=== PATIENT | female | born 1950 | race Caucasian/White ===

== ENCOUNTER 2023-05-02 16:17 | Emergency (ER) | payer MEDICARE, BC ==
[~2023-05-02] VITALS: Ht 167.6 cm; Wt 76.7 kg
[2023-05-02 17:03] VITALS: BP 135/81
[2023-05-02] MEDS ORDERED: AMOX500T86 PO (17:53)
[2023-05-02] MEDS ORDERED: ACET-1080 PO (17:53)
[2023-05-02] MEDS ORDERED: TETANUS-DIPTH-ACEL PERTUSSIS 0.5ML SYR Tdap IM ONE (18:00)
== END 2023-05-02 18:15 | disposition home or self-care (01) ==
LOC: ER 16:17
DX: S61.412A Laceration without foreign body of left hand, initial encounter (principal); S61.452A Open bite of left hand, initial encounter; Z79.2 Long term (current) use of antibiotics; Z79.899 Other long term (current) drug therapy; Z88.1 Allergy status to other antibiotic agents; W54.0XXA Bitten by dog, initial encounter; Y93.89 Activity, other specified; Y92.89 Other specified places as the place of occurrence of the external cause; Y99.8 Other external cause status
CPT/HCPCS: 12004; 90471; 90715; 99283; J2001

== ENCOUNTER 2023-05-04 14:40 | Emergency (ER) | payer MEDICARE, BC ==
[~2023-05-04] VITALS: Ht 167.6 cm; Wt 78.4 kg
[~2023-05-04 14:40] MED LIST: ACET-1080 PO; AMOX500T86 PO
[2023-05-04 15:15] VITALS: BP 135/61
[2023-05-04] MEDS ORDERED: CLINDAMYCIN 600MG IV 50 ML IV ONE (18:45)
[2023-05-04] MEDS ORDERED: cefTRIAXone 1GM/50ML D5W 50 ML IV ONE (18:45)
[2023-05-11] MEDS ORDERED: CEPH250C PO (14:00)
[2023-05-11] MEDS ORDERED: MAX35OO TOP (14:00)
== END 2023-05-04 20:47 | disposition home or self-care (01) ==
LOC: ER 14:40
DX: S61.412D Laceration without foreign body of left hand, subsequent encounter (principal); W54.0XXD Bitten by dog, subsequent encounter; Z98.51 Tubal ligation status; Z88.1 Allergy status to other antibiotic agents
CPT/HCPCS: 96365; 96368; 99284; J0696; J3490

== ENCOUNTER 2023-10-02 12:39 | Day surgery (SDC) | payer MEDICARE, BC ==
[2023-09-29 10:51] LABS: Basophils # (auto) 0 10 ^3/uL (0-0.2); Basophils % (auto) 0.4 % (0.0-2.0); Eosinophils # (auto) 0.1 10 ^3/uL (0-0.8); Hematocrit 40.3 % (36.0-46.0); Hemoglobin 13.4 g/dL (12.2-16.2); Lymphocytes # (auto) 2.5 10 ^3/uL (0.4-5.4); Lymphocytes % (auto) 38.8 % (10.0-50.0); Mean Corpuscular Hemoglobin 31.5 pg (28.0-32.0); Mean Corpuscular Hgb Conc. 33.2 g/dL (32.0-36.0); Mean Corpuscular Volume 94.7 fL (80.0-100.0); Monocytes # (auto) 0.6 10 ^3/uL (0-1.3); Monocytes % (auto) 8.7 % (0.0-12.0); Neutrophils # (auto) 3.3 10 ^3/uL (1.6-8.6); Neutrophils % (auto) 50.1 % (37.0-80.0); Nucleated Red Blood Cells % 0.1 %; Red Blood Cells 4.26 10^6/uL (4.0-5.20); Red Cell Distribution Width 13.2 % (11.8-14.3); White Blood Cell 6.6 10^3/uL (4.4-10.8)
[2023-09-29 11:14] LABS: INR 0.99 (0.9-1.15); Partial Thromboplastin Time 24.8 SEC (24.5-34.5); Prothrombin Time 10.4 sec (9.3-11.8)
[2023-09-29 11:40] LABS: Alanine Aminotransferase 16 U/L (7-40); Albumin 4.4 g/dL (3.2-4.8); Alkaline Phosphatase 77 U/L (46-116); Anion Gap 8 (5-15); Aspartate Aminotransferase 19 U/L (13-40); BUN/Creatinine Ratio 16.3 (10.0-20.0); Bilirubin, Total 0.8 mg/dL (0.2-1.0); Blood Urea Nitrogen 17 mg/dL (9-23); Calcium 9.4 mg/dL (8.7-10.4); Carbon Dioxide 26 mmol/L (20-30); Chloride 105 mmol/L (98-107); Glucose 104 mg/dL (74-106); Potassium 4.1 mmol/L (3.5-5.1); Sodium 139 mmol/L (136-145)
[2023-09-29 11:41] LABS: Total Protein 7.9 g/dL (5.7-8.2)
[~2023-10-02] VITALS: Ht 167.6 cm; Wt 77.1 kg
[2023-10-02] MEDS ORDERED: SODIUM CHLORIDE LOCK 10 ML ONE (12:45)
[2023-10-02 13:52] VITALS: PULSE 87; RESP 18; O2SAT 100
[2023-10-02] MEDS: MIDAZOLAM HCL 5 MG/ML-1ML VIAL ONE ×3 (13:56→14:03)
[2023-10-02] MEDS: fentaNYL CITRATE 100 MCG/2 ML VL ONE ×2 (13:56→13:59)
[2023-10-02] MEDS: diphenhdrAMINE HCL 50 MG/1 ML VL ONE ×2 (13:56→13:59)
[2023-10-02 14:18] VITALS: TEMP 98.1
[2023-10-02 14:55] VITALS: BP 131/62; PULSE 80; RESP 22; O2SAT 97
== END 2023-10-02 15:10 | disposition home or self-care (01) ==
LOC: GI 12:39
PROVIDERS: ATTEND Internal Medicine Gastroenterology
DX: R19.4 Change in bowel habit (principal); K57.30 Diverticulosis of large intestine without perforation or abscess without bleeding; K64.8 Other hemorrhoids; M62.89 Other specified disorders of muscle; I49.9 Cardiac arrhythmia, unspecified; G47.30 Sleep apnea, unspecified; Z88.1 Allergy status to other antibiotic agents; Z98.51 Tubal ligation status; Z98.890 Other specified postprocedural states
CPT/HCPCS: 36415; 45378; 80053; 85025; 85610; 85730; J1200; J2250; J3010; J7030; 99152

== ENCOUNTER 2025-07-01 12:45 | Emergency (ER) | payer BC, MEDICARE ==
[~2025-07-01] VITALS: Ht 170.2 cm; Wt 77.2 kg
--- NOTE | 2025-07-01 13:39 | ED.PDOC ---
Back pain HPI HPI Comments 75 y/o F presents with c/c lower back pain. Patient endorses on 6x day history of symptoms following onset after lifting several boxes of varying weight on 06/26/25. Significant history of chronic back pain with episode flare ups in the past. No additional strain, strenuous activities, or injuries reported. Patient was evaluated at ED and given tramadol, yesterday, which she endorses as not alleviating her pain symptom. Patient denies any weakness but does state she is experiencing pain through her right gluteal region into her right lateral thigh. Patient brought the imaging study report showing degenerative disc disease as well as spinal stenosis of the lumbar spine. Chief Complaint: Back Pain Time Seen by MD: 13:20 Primary Care Provider: JOSS Allergies: Coded Allergies: Erythromycin (Verified Allergy, Unknown, 05/02/23) Mode of Arrival: Wheelchair Timing: Hours Duration: Since onset Location of Back pain: (B) Lower back, (B) Lumbar Radiates to: Posterior: (R) Buttocks, (R) Thigh Severity: Severe Prehospital treatment: Other (see HPI) Quality: Cramping, Sharp, Stabbing Onset: Lifing History of: Chronic Back Pain Past Medical History PAST MEDICAL HISTORY: High Lipids Past Medical History (Other): Recent history of back pain concerns Surgical History: Tubal Ligation PR MANAGER History: Denies all PR MANAGER Hx Family History Family History: Unknown Social History Smoker: Non-Smoker Alcohol: Denies ETOH Use Drugs: Denies Drug Use Lives In: Home Constitutional: denies: chills, diaphoresis, fatigue, fever, malaise, sweats, weakness, others EENTM: denies: blurred vision, double vision, ear bleeding, ear discharge, ear drainage, ear pain, ear ringing, eye pain, eye redness, hearing loss, mouth pain, mouth swelling, nasal discharge, nose bleeding, nose congestion, nose pain, photophobia, tearing, throat pain, throat swelling, voice changes, others Respiratory: denies: cough, hemoptysis, orthopnea, SOB at rest, shortness of breath, SOB with excertion, stridor, wheezing, others Cardiovascular: denies: chest pain, dizzy spells, diaphoresis, Dyspnea on exertion, edema, irregular heart beat, left arm pain, lightheadedness, palpitations, PND, syncope, others Gastrointestinal: denies: abdomen distended, abdominal pain, blood streaked bowels, constipated, diarrhea, dysphagia, difficulty swallowing, hematemesis, melena, nausea, poor appetite, poor fluid intake, rectal bleeding, rectal pain, vomiting, others Genitourinary: denies: abnormal vagina bleeding, burning, dyspareunia, dysuria, flank pain, frequency, hematuria, incontinence, pain, , vagina discharge , urgency, others Neurological: denies: dizziness, fainting, headache, left sided numbness, left sided weakness, numbness, paresthesia, pre-existing deficit, right sided numbness, right sided weakness, seizure, speech problems, tingling, tremors, weakness, others Musculoskeletal: reports: back pain (Radiating down the right gluteal region into the lateral right thigh); denies: gout, joint pain, joint swelling, muscle pain, muscle stiffness, neck pain, others Integumetry: denies: bruises, change in color, change in hair/nails, dryness, laceration, lesions, lumps, rash, wounds, others Allergic/Immunocompromised: denies: Difficulty Healing, Frequent Infections, Hives, Itching, others Hematologic/Lymphatic: denies: anemia, blood clots, easy bleeding, easy bru ising, swollen glands, others Endocrine: denies: excessive hunger, excessive sweating, excessive thirst, e xcessive urination, flushing, intolerance to cold, intolerance to heat, unexplained weight gain, unexplained weight loss, others Psychiatric: denies: anxiety, bipolar disorder, depression, hopeless, panic disorder, schizophrenia, sleepless, suicidal, others All Other Systems: Reviewed and Negative (As per HPI) Physical Exam General Appearance: Moderate Distress (Moderate to significant distress due to back pain concerns.), Normal HEENT: Normal ENT Inspection, Pharynx Normal, TMs Normal Neck: Full Range of Motion, Non-Tender, Normal, Normal Inspection Respiratory: Chest Non-Tender, Lungs Clear, No Accessory Muscle Use, No Respiratory Distress, Normal Breath Sounds Cardiovascular: No Edema, No JVD, No Murmur, No Gallop, Normal Peripheral Pulses, Regular Rate/Rhythm Breast Exam: Deferred Gastrointestinal: Non Tender, No Pulsatile Mass, Normal Bowel Sounds, Soft Genitalia: Deferred Pelvic: Deferred Rectal: Deferred Extremities: No calf tenderness, Normal capillary refill, No pedal edema Musculoskeletal : Location: Bilateral Extremity Location: Back (Diffuse bilateral lumbar tenderness to palpation throughout with moderate to significant hypertonicity appreciated. Patient complains of pain radiating through the right gluteal region into the lateral right thigh. No signs of trauma. No edema or ecchymosis. Patient denies any saddle paresthesia. Bilateral distal neurovascularly intact.) Apperance: Normal Neurologic: Alert Cerebellar Function: NOT DONE Reflexes: NOT DONE Skin: Dry, Normal Color, Warm Lymphatic: No Adenopathy Was a procedure done? Was a procedure done?: No Back Pain Differential Dx Differential Diagnosis: DJD, Musculoskeletal Pain, Strain, Other (chronic back pain, degenerative disc disease, among others) X-Ray, Labs, Meds, VS Vital Signs Date Time Temp Pulse Resp B/P (MAP) Pulse Ox O2 Delivery O2 Flow Rate FiO2 07/01/25 13:43 99.0 82 16 127/64 (85) 95 99.0 07/01/25 13:43 82 16 95 Room Air 07/01/25 13:42 82 16 127/64 07/01/25 12:56 98.7 82 18 127/71 96 98.7 Current Medications Medications (Trade) Dose Ordered Sig/Armando Route Start Time Stop Time Status Last Admin Hydromorphone HCl (Dilaudid Injection) 0.5 mg ONCE ONCE IM 07/01/25 13:30 07/01/25 13:31 DC 07/01/25 13:42 X-Ray, Labs, Meds, VS Comment At time discussing with the condition with the patient. Advised that she will need to follow up with the primary care provider as she has spinal stenosis and degenerative disc disease of the lumbar spine. I will send the patient home with some [place] and she was provided with a 0.5 Dilaudid prior to discharge. Advised patient she will have to follow up with the primary care provider to either have him manage her medication needs or establish a painter maintenance. Time of 1ST Reevaluation: 13:55 Reevaluation 1ST: Improved Consultation: PCP, Other (Spinal specialist) Patient Education/Counseling: Diagnosis, Treatment, Need For Follow Up Family Education/Counseling: Diagnosis, Treatment, No Family Present SEPSIS Sepsis Screen Date sepsis recognized/suspect: Jul 01, 2025 Time Sepsis recognized/suspect: 1259 Recent Procedure: No On Antibiotic Therapy: No Respiratory Rate >20: No Heart Rate >90: No Temp<36 C (96.8 F) or >38.3 C: No SBP <90 or MAP <65 mmHG: No New Acute Mental Status Change: No Is the patient on CPAP, BIPAP,: No Vital Signs Date Time Temp Pulse Resp B/P (MAP) Pulse Ox O2 Delivery O2 Flow Rate FiO2 07/01/25 13:43 99.0 82 16 127/64 (85) 95 99.0 07/01/25 13:43 82 16 95 Room Air 07/01/25 13:42 82 16 127/64 07/01/25 12:56 98.7 82 18 127/71 96 98.7 Medications Medications Dose Ordered Sig/Armando Route Start Time Stop Time Status Last Admin Dose Admin Hydromorphone HCl 0.5 mg ONCE ONCE IM 07/01/25 13:30 07/01/25 13:31 DC 07/01/25 13:42 Departure 1 Departure Time of Disposition: 13:56 Impression: Primary Impression: Chronic low back pain Additional Impressions: Spinal stenosis Degenerative joint disease (DJD) of lumbar spine Disposition: 01 HOME / SELF CARE / HOMELESS Condition: Stable Additional Instructions: Advised patient utilize pain medication additionally, patient needs to follow up with the primary care provider for long-term management as well as spinal specialist referral. e-Prescriptions Hydrocodone-Acetaminophen (Hydrocodone Bitartrate/AC 10-325 mg) 1 Tab Tab 1 TAB PO Q8HP PRN, #15 TAB Prov: JAMILA KENT PAC 07/01/25 Discharged With: Self, Spouse Critical Care Note Critical Care Time?: No Stability Stability form required: No Heart Score Heart Score: Heart Score Response (Comments) Value History N/A 0 EKG N/A 0 Age N/A 0 Risk Factors N/A 0 Troponin N/A 0 Total 0 I personally scribed for JAMILA KENT PAC ([email or web address]) on 07/01/25 at 13:39. Electronically submitted by Dakotah Anguiano ([email or web address]). JAMILA KENT PAC Jul 01, 2025 13:39
[2025-07-01] MEDS: HYDROmorphone HCL 2 MG/ML VL/or syr IM ONE (13:42)
[2025-07-01 13:43] VITALS: TEMP 99; O2SAT 95
[2025-07-01] MEDS ORDERED: HYDR-4798 PO (13:58)
[2025-07-01 14:18] VITALS: BP 125/64; PULSE 82; RESP 16
== END 2025-07-01 14:20 | disposition home or self-care (01) ==
LOC: ER 12:50
DX: G89.29 Other chronic pain (principal); M51.360 Other intervertebral disc degeneration, lumbar region with discogenic back pain only; M48.061 Spinal stenosis, lumbar region without neurogenic claudication; E78.5 Hyperlipidemia, unspecified; Z98.51 Tubal ligation status; Z88.1 Allergy status to other antibiotic agents; Z91.09 Other allergy status, other than to drugs and biological substances
CPT/HCPCS: 96372; 99283; J1171

== ENCOUNTER 2025-08-06 10:52 | Emergency (ER) | payer MEDICARE ==
[~2025-08-06] VITALS: Ht 167.6 cm; Wt 75.0 kg
[~2025-08-06 10:52] MED LIST changes: -ACET-1080 PO; -AMOX500T86 PO; +HYDR-4798 PO
[2025-08-06 12:29] LABS: Urine Protein, UAD 1+ (Negative); Urine WBC Clumps PRESENT /hpf (None Seen)
[2025-08-06] MEDS: cefTRIAXone SOD 1,000 MG VL IM ONE (12:56)
[2025-08-06 12:58] VITALS: BP 122/68; PULSE 68; RESP 18; TEMP 98; O2SAT 97
[2025-08-06] MEDS ORDERED: cefTRIAXone SOD 1,000 MG VL ONE (12:59)
[2025-08-06] MEDS: HYDROcodone-ACET 5/325MG TAB PO ONE (13:07)
[2025-08-06] MEDS ORDERED: HYDROcodone-ACET 5/325MG TAB ONE (13:09)
--- NOTE | 2025-08-06 13:29 | ED.PDOC ---
General HPI Comments 75-year-old female presents with a chief complaint of UTI symptoms. No red flags. Also has a history of chronic back pain in his requesting refill on her [place] medication. Reports that she fell to follow up with the PCP Chief Complaint: Urinary Time Seen by MD: 11:13 Primary Care Provider: JOSS Reviewed notes: Nurses Notes, Medications, Allergies Allergies: Coded Allergies: Erythromycin (Verified Allergy, Unknown, 05/02/23) Home Meds Active Scripts Hydrocodone-Acetaminophen (Hydrocodone Bitartrate/AC 10-325 mg) 1 Tab Tab, 1 TAB PO Q8HP PRN, #15 TAB Prov:JAMILA KENT PAC 07/01/25 Information Source: Patient Mode of Arrival: Wheelchair Past Medical History PAST MEDICAL HISTORY: High Lipids Surgical History: Tubal Ligation COMPLIANCE ADVISOR History: Denies all COMPLIANCE ADVISOR Hx Family History Family History: Reviewed,noncontributory to illness, Unknown Social History Smoker: Non-Smoker Alcohol: Denies ETOH Use Drugs: Denies Drug Use Lives In: Home All Other Systems: Reviewed and Negative (PER HPI) Physical Exam General Appearance: No Apparent Distress, Normal HEENT: Normal ENT Inspection, Pharynx Normal, TMs Normal Neck: Full Range of Motion, Non-Tender, Normal, Normal Inspection Respiratory: Chest Non-Tender, Lungs Clear, No Accessory Muscle Use, No Respiratory Distress, Normal Breath Sounds Cardiovascular: No Edema, No JVD, No Murmur, No Gallop, Normal Peripheral Pulses, Regular Rate/Rhythm Breast Exam: Deferred Gastrointestinal: No Organomegaly, Non Tender, No Pulsatile Mass, Normal Bowel Sounds, Soft Genitalia: Deferred Pelvic: Deferred Rectal: Deferred Extremities: No calf tenderness, Normal capillary refill, Normal inspection, Normal range of motion, Non-tender, No pedal edema Musculoskeletal : Apperance: Normal Neurologic: Alert, mortgage servicing specialist II-XII nml as Tested, No Motor Deficits, Normal Affect, Normal Mood, No Sensory Deficits Cerebellar Function: Normal Reflexes: Normal Skin: Dry, Normal Color, Warm Lymphatic: No Adenopathy Was a procedure done? Was a procedure done?: No Differential Diagnosis Kidney stone (Female): Other X-Ray, Labs, Meds, VS Vital Signs Date Time Temp Pulse Resp B/P (MAP) Pulse Ox O2 Delivery O2 Flow Rate FiO2 08/06/25 12:58 98.0 64 16 122/68 (86) 97 98.0 08/06/25 12:58 68 18 97 Room Air 08/06/25 11:00 97.5 92 18 118/69 96 97.5 Lab Test 08/06/25 12:17 Range/Units Urine Color Colorless Yellow Urine Clarity Turbid H Clear Urine pH 6.0 5.0-9.0 Urine Specific [place] 1.006 1.001-1.035 Urine Protein 1+ H Negative Urine Ketones Negative Negative Urine Blood 2+ H Negative /uL Urine Nitrite Negative Negative Urine Bilirubin Negative Negative Urine Urobilinogen Normal Negative mg/dL Urine Leukocyte Esterase 3+ Negative /uL Urine RBC 1 0 - 4 /hpf Urine WBC Clumps Present None Seen /hpf Urine Microscopic WBC 82 H 0-5 /HPF Urine Squamous Epithelial Cells Few <5 /hpf Urine Bacteria Few H None Seen /hpf Urine Glucose Normal Normal mg/dL Current Medications Medications (Trade) Dose Ordered Sig/Armando Route Start Time Stop Time Status Last Admin Ceftriaxone Sodium (Rocephin) 1,000 mg ONCE ONCE IM 08/06/25 12:45 08/06/25 12:50 DC 08/06/25 12:56 Acetaminophen/ Hydrocodone Bitart ([place] 5/325MG Tab) 1 tab ONCE ONCE PO 08/06/25 13:00 08/06/25 13:01 DC 08/06/25 13:07 X-Ray, Labs, Meds, VS Comment The patient presents to the emergency room requesting a prescription for [place]. Discussed with patient that the emergency department does not refill controlled substances. Patient was advised they would need to follow up with their primary care doctor for future and further controlled substance prescriptions. Patient understands policy of the emergency department and agrees with plan for follow- up as an outpatient. Patient also understands all return precautions. History and lab findings consistent with UTI Vital signs stable patient stable Patient tolerating p.o. fluids Encouraged parents to increase water intake Practice good personal hygiene. Always wipe from front to back Drink plenty of fluids to help flush bacteria out of the urinary tract Empty bladder completely as soon as you feel the urge Complete course of antibiotic therapy even if symptoms improve or resolve. There should be no leftover antibiotics as this can lead to antibiotic resistant bacteria and even worse infection. Parents verbalized understanding. Potential side effects discussed with patient including abdominal pain, nausea, diarrhea. Recommended probiotics and return precautions given Persistent diarrhea Dehydration Blood in stool Ill-appearing On reevaluation, patient had symptomatic improvement. Patient is stable for discharge at this time. External notes reviewed. Test results and diagnostic imaging interpreted. All diagnostic findings, discharge care, education and instructions provided Follow-up with PCP in 2 to 3 days Patient verbalized understanding and agreed to treatment plan Vital signs stable, afebrile, no acute distress noted Patient ambulatory with strong steady gait Advised to return precautions for any new or worsening symptoms, return to ER immediately for re-evaluation Patient is aware that the purpose of this visit was for an acute medical emergency requiring emergent stabilization. Chronic conditions, including malignancies have not been ruled out. Patient is instructed to follow up with PCP as directed and discharge instructions for continued care and workup. If unable to arrange follow-up, patient is to return to the emergency department for reassessment. Patient (parent or legal guardian if applicable) was given verbal and written discharge instructions and acknowledges understanding. Time of 1ST Reevaluation: 13:25 Reevaluation 1ST: Improved Patient Education/Counseling: Diagnosis, Treatment Family Education/Counseling: Diagnosis, Treatment SEPSIS Sepsis Screen Date sepsis recognized/suspect: Aug 06, 2025 Time Sepsis recognized/suspect: 1100 Recent Procedure: No On Antibiotic Therapy: No Respiratory Rate >20: No Heart Rate >90: Yes Temp<36 C (96.8 F) or >38.3 C: No SBP <90 or MAP <65 mmHG: No New Acute Mental Status Change: No Is the patient on CPAP, BIPAP,: No Vital Signs Date Time Temp Pulse Resp B/P (MAP) Pulse Ox O2 Delivery O2 Flow Rate FiO2 08/06/25 12:58 98.0 64 16 122/68 (86) 97 98.0 08/06/25 12:58 68 18 97 Room Air 08/06/25 11:00 97.5 92 18 118/69 96 97.5 Medications Medications Dose Ordered Sig/Armando Route Start Time Stop Time Status Last Admin Dose Admin Acetaminophen/ Hydrocodone Bitart 1 tab ONCE ONCE PO 08/06/25 13:00 08/06/25 13:01 DC 08/06/25 13:07 Ceftriaxone Sodium 1,000 mg ONCE ONCE IM 08/06/25 12:45 08/06/25 12:50 DC 08/06/25 12:56 Departure 1 Departure Time of Disposition: 13:27 Impression: Primary Impression: UTI (urinary tract infection) Qualified Codes: N30.00 - Acute cystitis without hematuria Additional Impression: Back pain Qualified Codes: M54.50 - Low back pain, unspecified Disposition: HOME / SELF CARE / HOMELESS Condition: Stable Additional Instructions: Discharge Note: Continue on your medications. Drink plenty of fluids. Follow up with your primary Dr. Take your prescriptions as ordered. If your condition becomes worse call and follow up with your primary Dr. for instructions or return to the ER if needed. Thank you for visiting [facility]. Critical Care Note Critical Care Time?: No Stability Stability form required: No Heart Score Heart Score: Heart Score Response (Comments) Value History N/A 0 EKG N/A 0 Age N/A 0 Risk Factors N/A 0 Troponin N/A 0 Total 0 GARETH EDWARDS NP Aug 06, 2025 13:29
[2025-08-06] MEDS ORDERED: NITR-87 PO (13:31)
[2025-08-06] MEDS ORDERED: ACET500T58 PO (13:31)
== END 2025-08-06 13:36 | disposition home or self-care (01) ==
LOC: ER 10:52
DX: N39.0 Urinary tract infection, site not specified (principal); M54.50 Low back pain, unspecified; E78.5 Hyperlipidemia, unspecified; G89.29 Other chronic pain; Z98.51 Tubal ligation status; Z88.1 Allergy status to other antibiotic agents; Z79.899 Other long term (current) drug therapy
CPT/HCPCS: 81001; 96372; 99283; J0696